=== PATIENT | female | born 1955 | race Caucasian/White ===

== ENCOUNTER → 2018-11-10 | Outpatient (REF) | payer OTHER | LOC: M LAB REF 16:01 | PROVIDERS: ATTEND Ophthalmology | DX: H16.012 Central corneal ulcer, left eye (principal) ==

== ENCOUNTER → 2018-11-10 | Outpatient (CLI) | payer BC, OTHER ==
[2018-11-10 10:43] LABS: HEMATOCRIT 39.8 % (36.0-47.0); HEMOGLOBIN 12.9 g/dl (12.0-15.5); MEAN CORPUSCULAR HGB CONC 32.4 g/dl (32.0-36.5); MEAN CORPUSCULAR VOLUME 86.5 fl (80.0-96.0); PLATELET COUNT, AUTOMATED 258 10^3/uL (150-450); WHITE BLOOD COUNT 7.2 10^3/uL (4.0-10.0)
[2018-11-10 11:13] LABS: RHEUMATOID FACTOR QUANT < 10.0 IU/ML (<15.0)
[2018-11-12 00:07] LABS: ANGIOTENSIN 1 CONVERTING ENZYM 41 U/L (14-82); Lyme Disease IgG/IgM Antibodie <0.91 ISR (0.00-0.90); Lyme Disease IgM Ab Quantitati <0.80 index (0.00-0.79)
== END ==
LOC: M LAB 09:42
PROVIDERS: ATTEND Ophthalmology
DX: H20.012 Primary iridocyclitis, left eye (principal)

== ENCOUNTER → 2018-11-12 | Outpatient (REF) | payer OTHER | LOC: M LAB REF 16:24 | PROVIDERS: ATTEND Ophthalmology | DX: H16.012 Central corneal ulcer, left eye (principal) ==

== ENCOUNTER 2019-01-05 05:55 | Day surgery (SDC) | payer OTHER ==
[~2019-01-05] VITALS: Ht 162.6 cm; Wt 69.8 kg
[~2019-01-05 05:55] MED LIST: CASPOFUNGIN OS; MOXI0.5S OS; POLY2.5S OS; SPOR1CAP PO
[2019-01-05] MEDS ORDERED: ACETAMINOPHEN 325 MG TAB PO PRN (06:00)
[2019-01-05] MEDS ORDERED: LR 1,000 ML IV ONE (06:45)
[2019-01-05] MEDS ORDERED: FILTER 1.2 MICRON (ADULT TPN/MANNITOL/REMICADE) XX ONE (07:03)
[2019-01-05] MEDS ORDERED: MANNITOL 20% 100GM/500 ML BAG As Ordered ONE (07:03)
[2019-01-05] MEDS ORDERED: POVIDONE-IODINE 5% OPHTH PREP SOL 30ML As Ordered ONE (07:10)
[2019-01-05] MEDS ORDERED: DUOVISC (0.50ML VISCOAT/0.55ML PROVISC) OPHTH KIT As Ordered ONE ×2 (07:10→08:29)
[2019-01-05] MEDS ORDERED: ACETYLCHOLINE OPHTH SOLN 1% 2ML (MIOCHOL-E) As Ordered ONE (07:10)
[2019-01-05] MEDS ORDERED: TOBRADEX OPHTH OINT 3.5 GM As Ordered ONE (07:10)
[2019-01-05] MEDS ORDERED: TRYPAN BLUE 0.06 % 2.25 ML OPHTH SYR (VISIONBLUE) As Ordered ONE ×2 (07:10→07:41)
[2019-01-05] MEDS ORDERED: LIDOCAINE 2% INJ 100 MG/5 ML SDV (FOR ANES.) As Ordered ONE (07:18)
[2019-01-05] MEDS ORDERED: fentaNYL 250 MCG/5 ML INJECTION (J3010) As Ordered ONE (07:18)
[2019-01-05] MEDS ORDERED: PROPOFOL 200 MG/20 ML VIAL As Ordered ONE (07:18)
[2019-01-05] MEDS ORDERED: MIDAZOLAM INJ 2 MG/2 ML VIAL (J2250) As Ordered ONE (07:18)
[2019-01-05] MEDS ORDERED: dexameTHASONE 4 MG/ML 1ML VIAL (J1100) As Ordered ONE (07:18)
[2019-01-05] MEDS ORDERED: ROCURONIUM BROMIDE 50 MG/5 ML VIAL As Ordered ONE ×2 (07:18→08:44)
[2019-01-05] MEDS ORDERED: ONDANSETRON 4MG/2ML VIAL (J2405) As Ordered ONE (07:18)
[2019-01-05] MEDS ORDERED: TRIAMCINOLONE PRES FR 40 MG/ML 1ML(TRIESENCE)(OR EYE ONLY)(J3300 PER 1MG) As Ordered ONE (07:35)
[2019-01-05] MEDS ORDERED: GENTAMICIN SULF INJ 80MG/2ML VIAL (J1580) As Ordered ONE (07:36)
[2019-01-05] MEDS ORDERED: MANNITOL 20% IV ONE (08:00)
[2019-01-05] MEDS ORDERED: PHENYLephrine HCL 500 MCG/5 ML (100MCG/ML) SYRINGE (J2370) As Ordered ONE (08:03)
[2019-01-05] MEDS ORDERED: ePHEDrine SULFATE 25 MG/5 ML(5MG/ML) SYRINGE As Ordered ONE ×2 (08:03→08:46)
[2019-01-05] MEDS ORDERED: SUGAMMADEX SODIUM 500 MG/5 ML VIAL (BRIDION) As Ordered ONE (09:01)
[2019-01-05] MEDS ORDERED: FLUORESCEIN OPHTH 1 MG STRIP As Ordered ONE (09:21)
[2019-01-05] MEDS ORDERED: ONDANSETRON 4MG/2ML VIAL (J2405) IV PRN (10:00)
[2019-01-05] MEDS ORDERED: LR 1,000 ML IV SCH (10:00)
[2019-01-05] MEDS ORDERED: fentaNYL 100 MCG/2 ML INJECTION (J3010) IV PRN (10:00)
[2019-01-05] MEDS ORDERED: TRIMETHOBENZAMIDE 300 MG CAP PO PRN (10:00)
[2019-01-05] MEDS ORDERED: PERCOCET 5MG/325MG TAB PO PRN (10:00)
[2019-01-05 12:18] VITALS: BP 140/80
--- NOTE | 2019-01-07 12:08 | RO ---
DATE OF PROCEDURE: 01/05/2019 PREOPERATIVE DIAGNOSES: 1. 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 2. 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 3. Irregular astigmatism status post history of corneal ulcer. POSTOPERATIVE DIAGNOSES: 1. 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 2. 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 3. Irregular astigmatism status post history of corneal ulcer. PROCEDURE: 1. Penetrating keratoplasty of the left eye (8.5 mm post, 9.0 mm donor). 2. Peripheral iridectomy of the left eye. 3. Sub-Tenon injections. SURGEON: Fredrick Eddy MD [employer]ER: ANESTHESIA: General. SPECIMENS: 1. Left corneal ulcer scraping. 2. Patient cornea. 3. Donor cornea. Patient was seen and examined in the preoperative area. The consents were reviewed and the surgical eye was marked. The patient received IV Mannitol infusion. The patient was transferred to the operating room. The patient was placed under general anesthesia without difficulty by the anesthesia department. The eye was prepped and draped in a sterile fashion. Tegaderm was used to isolate the upper and lower eyelid and a wire lid speculum was placed to retract the eyelid. At that time, using a 1 mm sideport stab incision blade, corneal scrapings were obtained from the central corneal ulcer of the left eye. These were sent to microbiology. A Flieringa ring was sized and sutured to the sclera with four #5-0 nylon sutures. At that time, the patient's cornea was sized to determine the amount of tissue to be removed. An 8.5 mm metal trephine was placed to salome the corneal epithelium and then this area was dried and then marked with a marking pen. Given the presence of superior corneal vessels, the decision was made to perform a small superior conjunctival resection. William scissors and 0.12 forceps were used to remove approximately 5 mm of superior conjunctiva. Gentle Wet-Field cautery was applied to this area. Attention was then turned to the donor cornea. The donor cornea was placed endothelial side up in a 9.0 mm Saucedo corneal punch and the graft was trephinated without difficulty. Donor corneal scleral rim was sent half to microbiology and half to pathology for examination, and the graft was brought near the patient's eye. Attention was turned back towards the patient. Using an 8.5 mm vacuum trephine placed on the patient's cornea about six quarter clockwise turns were used to partially trephinate the patient's cornea. At that time, using right and then left corneal scissors, the central host cornea was excised 360 degrees and sent to pathology. A small cohesive viscoelastic was then placed on the eye. A small superior peripheral iridectomy was performed and demonstrated to be patent. The graft was then placed on to the patient's eye over viscoelastic support and approximated into position with four interrupted #10-0 nylon cardinal sutures at the 12 o'clock, 6 o'clock, 3 o'clock and 9 o'clock positions. Interrupted #10-0 nylon sutures were then placed circumferentially around for a total of sixteen #10-0 nylon sutures. Viscoelastic was washed from the anterior chamber with use of BSS. Any loose sutures were replaced for tighter sutures and all knots were then buried. Examination showed the graft in good position and secured with normal IOP with palpation. Fluorescein was placed indicating no leaks from the graft host margin. Sub-Tenon injections of 0.2 cc of gentamicin and Triescence were placed in the inferior fornix. Maxitrol ophthalmic ointment was placed over the eye and then a patch and shield were secured over the eye. The patient was then extubated and discharged to the postanesthesia care unit (PACU) in a stable condition. KAMALA
== END 2019-01-05 12:35 | disposition home or self-care (01) ==
LOC: M SDC 05:55
PROVIDERS: ATTEND Ophthalmology
DX: H16.012 Central corneal ulcer, left eye (principal); H17.9 Unspecified corneal scar and opacity; H52.212 Irregular astigmatism, left eye; Z78.0 Asymptomatic menopausal state
CPT/HCPCS: 65730; 67515; 87070; 87075; 87076; 87102; 87116; 87205; 87206; 88300; J1100; J1580; J2250; J2370; J2405; J3010; J3300